=== PATIENT | female | born 1965 | race Caucasian/White ===

== ENCOUNTER 2017-04-18 09:03 | Emergency (ER) | payer SELFPAY ==
[2017-04-18 10:20] VITALS: BP 131/85; TEMP 98; O2SAT 97
--- NOTE | 2017-04-18 10:47 | ED.PDOC ---
History of Present Illness - General Chief Complaint: Upper Extremity Injury Stated Complaint: R shoulder discomfort Time Seen by Provider: 04/18/17 10:41 Source: patient Exam Limitations: no limitations - History of Present Illness Occurred: just prior to arrival Method of Injury: fell Improving Factors: nothing Worsening Factors: movement Allergies/Adverse Reactions: Allergies Prochlorperazine [From Compazine] Adverse Reaction (Verified 04/18/17 10:21) Other Muscle reaction Review of Systems - Review of Systems All other Systems: Reviewed and Negative Past Medical History (General) - Patient Medical History Hx Stroke: No Hx Congestive Heart Failure: No Hx Hypertension: Yes Hx Thyroid Disease: Yes - thyroidectomy Hx Diabetes: No Surgical History: cholecystectomy, tonsillectomy, other - Vaccination History Hx Influenza Vaccination: No Hx Pneumococcal Vaccination: No - Social History Hx Tobacco Use: No - Female History Patient is a Female of Child Bearing Age (10 -59 yrs old): Yes Patient : No Family Medical History - Family History Mother Living Status: Still Living Hx Cardiac Disease: Yes - [place] Hx Family Diabetes: Yes Hx Family Cancer: Yes - Breast CA Physical Exam - Physical Exam General Appearance: Alert, Well Developed Eyes, Ears, Nose, Throat Exam: PERRL/EOMI, normal ENT inspection Neck: non-tender, full range of motion Cardiovascular/Respiratory: regular rate, rhythm, no M/R/G Abdominal Exam: non-tender, no organomegaly Back Exam: normal inspection, no CVA tenderness Shoulder Exam: limited ROM, pain Elbow/Forearm Exam: normal inspection, non-tender, no evidence of injury, normal ROM Wrist Exam: normal inspection, non-tender, no evidence of injury, normal ROM Hand Exam: normal inspection, non-tender, no evidence of injury Neuro/Tendon: normal sensation, no evidence tendon injury Mental Status: alert, oriented x 3 Skin Exam: normal color, warm/dry Progress - Results/Orders Results/Orders: PROLONGED STAY IN E.D. DUE TO TECHNICAL DIFFICULTIES (XRAY VIEWING SYSTEM WASN' T WORKING). NO FRX. R.I.C.E. Departure - Departure Clinical Impression: Sprain of shoulder Disposition: Discharge to Home or Self Care Condition: Good Departure Forms: ED Discharge - Pt. Copy, Patient Portal Self Enrollment Instructions: DI for Shoulder Sprain Activity: increase activity as tolerated Referrals: Suresh Anderson MD [Primary Care Provider] - 1-2 Weeks
--- NOTE | 2017-04-18 11:57 | RAD ---
EXAM DESCRIPTION: Radiographs of the right shoulder. CLINICAL HISTORY: fall, pain, decreased ROM COMPARISON: None Available. TECHNIQUE: AP internal external rotation image. Lateral "Y" image. IMPRESSION: No fracture right shoulder. Normal bone density. AC joint minimally narrowed. Glenohumeral joint unremarkable No abnormal radiodense objects in the soft tissues or joint spaces . Electronically signed by: Neeraj Florentino MD 04/18/2017 11:56 AM [facility]
== END 2017-04-18 12:20 | disposition home or self-care (01) ==
LOC: ER 09:03
DX: S43.401A Unspecified sprain of right shoulder joint, initial encounter (principal); I10 Essential (primary) hypertension; E07.9 Disorder of thyroid, unspecified; Z88.8 Allergy status to other drugs, medicaments and biological substances; X58.XXXA Exposure to other specified factors, initial encounter; Y92.9 Unspecified place or not applicable

== ENCOUNTER → 2019-11-11 | Outpatient (CLI) | payer OTHER ==
--- NOTE | 2019-11-12 17:59 | MRI ---
EXAM DESCRIPTION: Cervical Spine: MRI. CLINICAL HISTORY: 54 years Female RADICULOPATHY COMPARISON: Cervical TECHNIQUE: Multiplanar, high-field MRI, multiple sequences, non-contrast Cervical spine. FINDINGS: Hyperintense T1 and T2 ill-defined signal in the ventral midline and right lateral cord at the level of the C3-4 disc. No signal change on the FFE sequence or the STIR sequence. No cord compression at this level or above or below. C3-4 disc with mild desiccation, right uncinate spur in the posterior ligaments and bilateral facet joints are negative. C4-C5: Minimal disc desiccation with disc space maintained. Tiny bilateral uncinate spurs with mild canal and neural foraminal narrowing. Facet joints and ligaments are negative. C5-C6: Disc desiccation with disc space maintained and no bulging. No evidence of 8 spur and minimal degenerative hypertrophy of the right facet resulting in mild to moderate right neural foraminal narrowing. Left neural foramen is patent. C6-C7: Disc desiccation and minimal disc space loss. Tiny posterior midline bulge. Minimal thickening of the posterior ligaments. Mild canal narrowing. Facet joints are unremarkable and bilateral foramina are patent. Normal signal in the C2-C3 disc, C7-T1 disc, and T1-T2 disc with no bulging. Disc spaces preserved. Canal and neural foramina are patent. Facet joints are negative. T2-T3 disc space is only visualized in the sagittal sequences with no desiccation. However, there is asymmetric bulging of the disc to the right of midline abutting the cord. Associated with a uncinate spur and moderate right neural foraminal narrowing. Spinal alignment physiologic. No cord compression or cord edema. Atlantoaxial joint negative. Base of the cerebellar tonsils is at the level of the foramen magnum. Vertebral bodies are not compressed at any level. Otherwise normal marrow signal in the remaining vertebral bodies and the posterior elements. Paravertebral soft tissues: Asymmetric mass visualized asymmetrically thickening the right epiglottis, the vestibule, and completely effacing the right vallecula and partially effacing the left vallecula across the midline. This is also abutting the base of the tongue. Possible thickening of the fascia between the medial right submandibular gland and the outer wall of the hypopharynx at the level of the mass. Possible enlargement of a right carotid space lymph node 1.2 x 0.7 cm. IMPRESSION: 1. Abnormal signal ventral midline right lateral cord at the level of the C3-4 disc without cord enlargement, atrophy, or compression. This could represent asymmetric vertebral malacia, prior injury, or a demyelinating plaque from process such as multiple sclerosis. Consider follow-up cervical spine MRI study with gadolinium IV contrast. 2. Other cervical discs with desiccation and canal and neural foraminal narrowing. T2-T3 disc is bulging to the right of midline along with uncinate spur and mild to moderate narrowing of the right neural foramen. 3. 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 Possible involvement of the right upper pharyngeal wall and fat plane with the right submandibular gland. Possible enlarged lymph node. Recommend follow-up CT scan of the neck soft tissues with IV contrast, or MRI scan of the neck soft tissues without and with IV contrast. Electronically signed by: Neeraj Florentino MD 11/12/2019 5:58 PM CDT
== END ==
LOC: MRI 12:58
PROVIDERS: ATTEND Nurse Practitioner Family
DX: M50.120 Mid-cervical disc disorder, unspecified level (principal); M51.34 Other intervertebral disc degeneration, thoracic region; M48.04 Spinal stenosis, thoracic region; R22.1 Localized swelling, mass and lump, neck; M51.84 Other intervertebral disc disorders, thoracic region; M25.78 Osteophyte, vertebrae